=== PATIENT | male | born 1965 | race Caucasian/White ===

== ENCOUNTER → 2022-03-27 | Outpatient (CLI) | payer BC ==
[~2022-03-27] MED LIST: TAM04C
[2022-03-27 09:15] LABS: Urine Bacteria NONE SEEN /hpf (None Seen); Urine Blood Negative /uL (Negative); Urine Specific Gravity 1.015 (1.001-1.035); Urine WBC 1 /hpf (0 - 3)
[2022-03-27 09:19] LABS: Basophils # (auto) 0 10 ^3/uL (0-0.2); Basophils % (auto) 0.7 % (0.0-2.0); Eosinophils # (auto) 0.6 10 ^3/uL (0-0.8); Eosinophils % (auto) 8.1 % (0.0-7.0); Hematocrit 41.6 % (41.0-53.0); Hemoglobin 13.7 g/dL (13.5-17.5); Lymphocytes # (auto) 1.4 10 ^3/uL (0.4-5.4); Lymphocytes % (auto) 19.2 % (10.0-50.0); Mean Corpuscular Hemoglobin 28.5 pg (28.0-32.0); Mean Corpuscular Hgb Conc. 32.9 g/dL (32.0-36.0); Mean Corpuscular Volume 86.5 fL (80.0-100.0); Monocytes # (auto) 0.6 10 ^3/uL (0-1.3); Monocytes % (auto) 8.7 % (0.0-12.0); Neutrophils # (auto) 4.5 10 ^3/uL (1.6-8.6); Neutrophils % (auto) 63.3 % (37.0-80.0); Nucleated Red Blood Cells % 0.1 %; Red Blood Cells 4.81 10^6/uL (4.5-5.90); White Blood Cell 7.2 10^3/uL (4.4-10.8)
[2022-03-27 09:50] LABS: Albumin 3.8 g/dL (3.4-5.0); Calcium 8.6 mg/dL (8.5-10.1)
[2022-03-27 09:57] LABS: Bilirubin, Total 0.3 mg/dL (0.2-1.0)
== END | disposition home or self-care (01) ==
LOC: LAB 08:53
PROVIDERS: ATTEND Internal Medicine
DX: Z12.11 Encounter for screening for malignant neoplasm of colon (principal); I10 Essential (primary) hypertension; R97.20 Elevated prostate specific antigen [PSA]
CPT/HCPCS: 36415; 80053; 80061; 81001; 83036; 84153; 84403; 84443; 85025

== ENCOUNTER → 2022-04-19 | Outpatient (CLI) | payer BC | END | disposition home or self-care (01) | LOC: LAB 11:42 | PROVIDERS: ATTEND Internal Medicine | DX: Z12.11 Encounter for screening for malignant neoplasm of colon (principal); I10 Essential (primary) hypertension; R97.20 Elevated prostate specific antigen [PSA] | CPT/HCPCS: 82270 ==

== ENCOUNTER → 2023-11-11 | Outpatient (CLI) | payer BC ==
[~2023-11-11] MED LIST changes: -TAM04C; +TAMS-35
[2023-11-11 08:10] LABS: Basophils # (auto) 0 10 ^3/uL (0-0.2); Basophils % (auto) 0.6 % (0.0-2.0); Eosinophils # (auto) 0.4 10 ^3/uL (0-0.8); Eosinophils % (auto) 4.6 % (0.0-7.0); Hematocrit 41.8 % (41.0-53.0); Hemoglobin 14.1 g/dL (13.5-17.5); Lymphocytes # (auto) 1.6 10 ^3/uL (0.4-5.4); Lymphocytes % (auto) 20.5 % (10.0-50.0); Mean Corpuscular Hemoglobin 29.1 pg (28.0-32.0); Mean Corpuscular Hgb Conc. 33.6 g/dL (32.0-36.0); Mean Corpuscular Volume 86.5 fL (80.0-100.0); Monocytes # (auto) 0.6 10 ^3/uL (0-1.3); Monocytes % (auto) 7.6 % (0.0-12.0); Neutrophils # (auto) 5.2 10 ^3/uL (1.6-8.6); Neutrophils % (auto) 66.7 % (37.0-80.0); Red Blood Cells 4.83 10^6/uL (4.5-5.90); Red Cell Distribution Width 13.2 % (11.8-14.3); White Blood Cell 7.9 10^3/uL (4.4-10.8)
[2023-11-11 09:02] LABS: Alanine Aminotransferase 28 U/L (7-40); Albumin 4.3 g/dL (3.2-4.8); Alkaline Phosphatase 70 U/L (46-116); Anion Gap 6 (5-15); Aspartate Aminotransferase 30 U/L (13-40); BUN/Creatinine Ratio 20.6 (10.0-20.0); Blood Urea Nitrogen 22 mg/dL (9-23); Calcium 9.3 mg/dL (8.5-10.1); Carbon Dioxide 29 mmol/L (20-30); Chloride 105 mmol/L (98-107); Glucose 108 mg/dL (74-106); LDL Cholesterol 82 mg/dL (< 100); Sodium 140 mmol/L (136-145); Triglycerides 109 mg/dL (< 150)
[2023-11-11 09:03] LABS: Bilirubin, Total 0.5 mg/dL (0.2-1.0); Cholesterol 135 mg/dL (< 200); HDL Cholesterol 40 mg/dL (40-59); Total Protein 6.9 g/dL (5.7-8.2)
== END | disposition home or self-care (01) ==
LOC: LAB 07:54
PROVIDERS: ATTEND Internal Medicine
DX: Z01.812 Encounter for preprocedural laboratory examination (principal); I10 Essential (primary) hypertension; N40.1 Benign prostatic hyperplasia with lower urinary tract symptoms
CPT/HCPCS: 36415; 80053; 80061; 83036; 84153; 84443; 85025

== ENCOUNTER 2023-11-25 06:26 | Inpatient (IN) | payer BC ==
[2023-11-22 14:08] LABS: Urine Bacteria None Seen /hpf (None Seen)
[2023-11-22 14:16] LABS: Basophils # (auto) 0 10 ^3/uL (0-0.2); Basophils % (auto) 0.6 % (0.0-2.0); Eosinophils # (auto) 0.4 10 ^3/uL (0-0.8); Eosinophils % (auto) 5.2 % (0.0-7.0); Hematocrit 40.8 % (41.0-53.0); Hemoglobin 13.4 g/dL (13.5-17.5); Lymphocytes # (auto) 1.6 10 ^3/uL (0.4-5.4); Lymphocytes % (auto) 19.9 % (10.0-50.0); Mean Corpuscular Hemoglobin 28.7 pg (28.0-32.0); Mean Corpuscular Hgb Conc. 32.9 g/dL (32.0-36.0); Mean Corpuscular Volume 87.1 fL (80.0-100.0); Monocytes # (auto) 0.6 10 ^3/uL (0-1.3); Monocytes % (auto) 7.2 % (0.0-12.0); Neutrophils # (auto) 5.4 10 ^3/uL (1.6-8.6); Neutrophils % (auto) 67.1 % (37.0-80.0); Red Blood Cells 4.69 10^6/uL (4.5-5.90); Red Cell Distribution Width 13.8 % (11.8-14.3)
[2023-11-22 14:31] LABS: Urine Blood Negative /uL (Negative); Urine Clarity Clear (Clear); Urine Color Yellow (Yellow); Urine Mucus FEW (None Seen); Urine Protein, UAD 1+ (Negative); Urine Specific Gravity 1.038 (1.001-1.035); Urine Urobilinogen Normal (Negative); Urine WBC 1 /hpf (0 - 3); Urine pH 5.5 (5.0-9.0)
[2023-11-22 14:35] LABS: INR 0.98 (0.9-1.15); Partial Thromboplastin Time 26.4 SEC (24.5-34.5); Prothrombin Time 10.4 sec (9.3-11.8)
[2023-11-22 14:48] LABS: Alanine Aminotransferase 37 U/L (7-40); Albumin 4.4 g/dL (3.2-4.8); Alkaline Phosphatase 71 U/L (46-116); Anion Gap 5 (5-15); Aspartate Aminotransferase 32 U/L (13-40); BUN/Creatinine Ratio 17.7 (10.0-20.0); Bilirubin, Total 0.4 mg/dL (0.2-1.0); Blood Urea Nitrogen 20 mg/dL (9-23); Calcium 9.3 mg/dL (8.5-10.1); Carbon Dioxide 30 mmol/L (20-30); Chloride 107 mmol/L (98-107); Glucose 117 mg/dL (74-106); Potassium 3.8 mmol/L (3.5-5.1); Sodium 142 mmol/L (136-145)
[~2023-11-25] VITALS: Ht 170.2 cm; Wt 104.2 kg
[~2023-11-25 06:26] MED LIST changes: +ACET-1304 PO; +CELE200C PO; +IBU600T PO; +LOSA100T25 PO; -TAMS-35
[2023-11-25] MEDS ORDERED: DexAMETHasone SOD PHOS 10MG/1ML VIAL INJ ONE (06:56)
[2023-11-25] MEDS ORDERED: ONDANSETRON HCL 4 MG/2 ML VIAL ONE (06:56)
[2023-11-25] MEDS ORDERED: PROPOFOL 10 MG/ML 20 ML IV ONE ×4 (06:56→09:34)
[2023-11-25] MEDS ORDERED: GLYCOPYRROLATE 0.2 MG/ML 1ML VIAL ONE (06:56)
[2023-11-25] MEDS ORDERED: LIDOCAINE 2% (LOCAL ANESTH.) PF 5ml SDV ONE (06:56)
[2023-11-25] MEDS ORDERED: KETOROLAC TROMETH 30 MG/ML 1ML VIAL ONE (07:04)
[2023-11-25] MEDS ORDERED: KETAMINE 50mg/ML 1ml syringe ONE (07:10)
[2023-11-25] MEDS: ACETAMINOPHEN IV 1000 MG/100ML (10MG/ML) IV ONE (07:10)
[2023-11-25] MEDS: CELECOXIB 100 MG CAP PO ONE (07:10)
[2023-11-25] MEDS: PREGABALIN CAPSULE 75 MG CAP PO ONE (07:10)
[2023-11-25] MEDS ORDERED: ONDANSETRON HCL 4 MG/2 ML VIAL IV PRN ×2 (08:15→10:30)
[2023-11-25] MEDS ORDERED: MORPHINE SULFATE INJ 2 MG/ml SYRG IV PRN (08:15)
[2023-11-25] MEDS ORDERED: ceFAZolin 1GM/50ML 50 ML IV SCH (08:15)
[2023-11-25] MEDS ORDERED: NITROGLYCERIN 0.4 MG SL TAB SL PRN (08:15)
[2023-11-25] MEDS ORDERED: SODIUM CHLORIDE LOCK 10 ML ONE (08:40)
[2023-11-25] MEDS ORDERED: PHENYLEPHRINE HCL 10 MG/ML VL ONE (08:40)
[2023-11-25] MEDS: MORPHINE SULF PF 5 MG/10 ML VIAL ONE (09:02)
[2023-11-25] MEDS: KETOROLAC TROMETH 30 MG/ML 1ML VIAL ONE (09:02)
[2023-11-25] MEDS: BUPIVACAINE 0.25% INJ 50ML VIAL ONE ×2 (09:02→15:39)
[2023-11-25] MEDS: VANCOMYCIN HCL 1000 MG VL ONE (09:04)
[2023-11-25] MEDS: ENOXAPARIN SOD 40 MG/0.4 ML SYRINGE SC SCH (10:00)
[2023-11-25 10:19] VITALS: O2SAT 100
[2023-11-25] MEDS ORDERED: LABETALOL HCL 5 MG/ML 4ML SYRINGE IV PRN (10:30)
[2023-11-25] MEDS ORDERED: ePHEDrine SULFATE 50 MG/ML AMP IV PRN (10:30)
[2023-11-25] MEDS ORDERED: NALOXONE HCL 0.4 MG/ML VIAL IV PRN (10:30)
[2023-11-25] MEDS ORDERED: hydrALAZINE HCL 20 MG/ML VL IV PRN (10:30)
[2023-11-25] MEDS ORDERED: fentaNYL CITRATE 100 MCG/2 ML VL IV PRN (10:30)
[2023-11-25] MEDS ORDERED: oxyCODONE HCL 5MG TAB PO PRN (10:30)
[2023-11-25] MEDS ORDERED: FLUMAZENIL 0.1 MG/ML INJ 10ML MDV IV PRN (10:30)
[2023-11-25] MEDS ORDERED: HYDROmorphone HCL 2 MG/ML VL/or syr IV PRN (10:30)
[2023-11-25 14:55] VITALS: BP 135/77; PULSE 70; RESP 18; TEMP 97.8; O2SAT 90
[2023-11-25] MEDS ORDERED: PANT40T PO (14:57)
[2023-11-25] MEDS ORDERED: LOSA100T30 PO (14:57)
[2023-11-25 15:00] VITALS: PULSE 70; PULSE 76; RESP 16; O2SAT 90
[2023-11-25] MEDS: EPINEPHrine HCL 1 MG/1 ML AMP ONE (15:38)
[2023-11-25] MEDS: ceFAZolin 2 GM/D5W50ml 50 ML IV ONE (15:38)
[2023-11-25] MEDS: DexAMETHasone SOD PHOS 4 MG/1ML SDV INJ ONE (15:38)
[2023-11-25] MEDS: CELECOXIB 100 MG CAP ONE (15:39)
[2023-11-25] MEDS: BUPIVACAINE HCL 50 ML ONE (15:39)
[2023-11-25] MEDS: ACETAMINOPHEN IV 100 ML IV ONE (15:39)
[2023-11-25] MEDS: TRANEXAMIC ACID 20 ML ONE (15:39)
[2023-11-25] MEDS: PREGABALIN CAPSULE 75 MG CAP ONE (15:40)
[2023-11-25] MEDS: oxyCODONE ER 10 MG TAB PO SCH (15:41)
[2023-11-25] MEDS: LACTATED RINGER'S 1,000 ML IV SCH (15:41)
[2023-11-25] MEDS: SODIUM CHLOR 0.9% PF (SALINE LOCK) 10ML VIAL/SYR IV SCH (15:42)
[2023-11-25] MEDS: DOCUSATE SOD 100 MG CAP PO SCH (15:42)
[2023-11-25] MEDS: CIPROFLOXACIN 400MG/200ML 200 ML IV ONE (16:15)
[2023-11-25] MEDS: MULTIPLE VITAMIN TAB PO SCH (16:15)
[2023-11-25 17:00] VITALS: BP 141/75; PULSE 78; RESP 19; TEMP 97.7; O2SAT 96
[2023-11-25] MEDS: ceFAZolin 1GM/50ML 50 ML IV SCH (18:11)
[2023-11-25 20:00] VITALS: PULSE 100
[2023-11-25 21:00] VITALS: BP_SYST 125; BP_SYST 143; BP_DIAS 64; BP_DIAS 65; PULSE 77; PULSE 95; RESP 18; RESP 19; TEMP 98.2; O2SAT 93; O2SAT 96
[2023-11-26] VITALS (10 sets, daily range): BP systolic 125–148; BP diastolic 67–75; PULSE 73–97; RESP 16–20; TEMP 97.4–98.5; O2SAT 90–99
[2023-11-26 05:32] LABS: Hematocrit 34.6 % (41.0-53.0); Hemoglobin 11.5 g/dL (13.5-17.5)
[2023-11-26 05:41] LABS: Alanine Aminotransferase 24 U/L (7-40); Albumin 3.6 g/dL (3.2-4.8); Alkaline Phosphatase 53 U/L (46-116); Anion Gap 5 (5-15); Aspartate Aminotransferase 31 U/L (13-40); BUN/Creatinine Ratio 18.6 (10.0-20.0); Blood Urea Nitrogen 16 mg/dL (9-23); Calcium 8.7 mg/dL (8.5-10.1); Carbon Dioxide 26 mmol/L (20-30); Chloride 107 mmol/L (98-107); Glucose 162 mg/dL (74-106); Potassium 4.6 mmol/L (3.5-5.1); Sodium 138 mmol/L (136-145)
[2023-11-26 05:42] LABS: Bilirubin, Total 0.3 mg/dL (0.2-1.0); Total Protein 5.8 g/dL (5.7-8.2)
[2023-11-26] MEDS: LOSARTAN POTASSIUM PO SCH (06:40)
[2023-11-26] MEDS: HYDROCHLO PO SCH (06:40)
[2023-11-26] MEDS ORDERED: hydroCHLOROthiazide 25 MG TAB PO SCH (10:00)
[2023-11-26] MEDS: LOSARTAN POTASSIUM 50 MG TAB PO SCH (11:22)
[2023-11-26] MEDS: KETOROLAC TROMETH 30 MG/ML 1ML VIAL IV PRN (18:11)
[2023-11-27] VITALS (8 sets, daily range): BP systolic 123–150; BP diastolic 67–84; PULSE 70–102; RESP 16–20; TEMP 97.7–99.5; O2SAT 90–100
[2023-11-27] MEDS: OXYCODONE W/ ACETAMINOPHEN 5/325MG TABLET PO PRN (05:36)
[2023-11-27 07:40] LABS: Anion Gap 3 (5-15); Carbon Dioxide 30 mmol/L (20-30); Chloride 105 mmol/L (98-107); Potassium 3.8 mmol/L (3.5-5.1); Sodium 138 mmol/L (136-145)
[2023-11-27 07:41] LABS: Calcium 8.6 mg/dL (8.5-10.1)
[2023-11-27 07:43] LABS: Basophils # (auto) 0 10 ^3/uL (0-0.2); Basophils % (auto) 0.4 % (0.0-2.0); Eosinophils # (auto) 0.5 10 ^3/uL (0-0.8); Eosinophils % (auto) 4.9 % (0.0-7.0); Hematocrit 34.7 % (41.0-53.0); Hemoglobin 11.6 g/dL (13.5-17.5); Lymphocytes # (auto) 1.8 10 ^3/uL (0.4-5.4); Lymphocytes % (auto) 17.8 % (10.0-50.0); Mean Corpuscular Hemoglobin 29.2 pg (28.0-32.0); Mean Corpuscular Hgb Conc. 33.4 g/dL (32.0-36.0); Mean Corpuscular Volume 87.6 fL (80.0-100.0); Monocytes # (auto) 1.2 10 ^3/uL (0-1.3); Monocytes % (auto) 12.4 % (0.0-12.0); Neutrophils # (auto) 6.5 10 ^3/uL (1.6-8.6); Neutrophils % (auto) 64.5 % (37.0-80.0); Red Blood Cells 3.96 10^6/uL (4.5-5.90); Red Cell Distribution Width 13.6 % (11.8-14.3)
[2023-11-27 07:45] LABS: Glucose 105 mg/dL (74-106)
[2023-11-27 07:46] LABS: BUN/Creatinine Ratio 21.8 (10.0-20.0); Blood Urea Nitrogen 17 mg/dL (9-23)
[2023-11-27] MEDS: HYDROmorphone HCL 2 MG/ML VL/or syr IV PRN (09:57)
[2023-11-28 05:00] VITALS: BP 117/64; PULSE 83; RESP 20; TEMP 98.8; O2SAT 100
[2023-11-28 06:43] LABS: Hemoglobin 11.5 g/dL (13.5-17.5)
[2023-11-28 09:00] VITALS: BP 109/63; PULSE 86; RESP 20; TEMP 98; O2SAT 94
[2023-11-28] MEDS ORDERED: OXYCODONE W/ ACETAMINOPHEN 5/325MG TABLET PO PRN (11:15)
[2023-11-28] MEDS: KETOROLAC TROMETH 30 MG/ML 1ML VIAL IV SCH (12:00)
[2023-11-28 15:54] VITALS: BP_SYST 117; BP_SYST 125; BP_DIAS 48; BP_DIAS 64; PULSE 81; PULSE 89; RESP 16; RESP 20; TEMP 98; TEMP 98.7; O2SAT 94; O2SAT 96
[2023-11-28 16:44] VITALS: BP 117/48; PULSE 89; RESP 20; TEMP 98.7; O2SAT 96
[2023-11-28] MEDS: CYCLOBENZAPRINE HCL 10 MG TAB PO PRN (19:02)
[2023-11-28 21:00] VITALS: BP 118/56; PULSE 94; RESP 18; TEMP 98.5; O2SAT 100
[2023-11-29 05:00] VITALS: BP 121/67; PULSE 85; RESP 18; TEMP 98.6; O2SAT 96
[2023-11-29 09:00] VITALS: BP 125/64; PULSE 81; RESP 16; TEMP 98; O2SAT 94
[2023-11-29] MEDS ORDERED: CYCL-839 PO (12:01)
[2023-11-29 13:00] VITALS: BP 134/65; PULSE 78; RESP 16; TEMP 98; O2SAT 94
== END 2023-11-29 14:30 | disposition home or self-care (01) | DRG 470 ==
LOC: SUR 06:26 → EEVIPCON 07:00 → OVERFLOW 08:11 → TELE-WESTW 15:19 → WEST WING 11-26 11:42
PROVIDERS: ADMIT Orthopaedic Surgery Adult Reconstructive Orthopaedic Surgery; ATTEND Internal Medicine
PROC: 0SRD0J9 Replacement of Left Knee Joint with Synthetic Substitute, Cemented, Open Approach (ICD-10-PCS; principal; 2023-11-25 07:59)
DX: M17.12 Unilateral primary osteoarthritis, left knee (principal); I10 Essential (primary) hypertension; E66.9 Obesity, unspecified; Z68.36 Body mass index [BMI] 36.0-36.9, adult; Z88.2 Allergy status to sulfonamides; Z79.899 Other long term (current) drug therapy
CPT/HCPCS: 36415; 73562; 80048; 80053; 81001; 85014; 85018; 85025; 85610; 85730; 86850; 86900; 86901; 97110; 97163; G0378; J0131; J0171; J1100; J1885; J2001; J2405; J2704; J3490